=== PATIENT | male | born 1965 | race Caucasian/White ===

== ENCOUNTER 2018-01-28 05:27 | Inpatient (IN) | payer BC ==
[2018-01-24 10:32] LABS: ABSOLUTE NEUTROPHILS 5.2 thou/uL (1.4-8.2); BASOPHILS 0.5 % (0.0-2.0); EOSINOPHILS 1.7 % (0.0-3.0); HEMATOCRIT 42.9 % (42.0-52.0); LYMPHOCYTES 36.3 % (24.0-44.0); MCH 31.6 pg (26.0-34.0); MCHC 34.8 g/dL (28.0-37.0); MCV 90.6 fL (80.0-100.0); PLATELET COUNT 187 thou/uL (150-400); POLYS 54.5 % (36.0-66.0); RBC 4.74 mil/uL (4.50-6.00); RDW 13.3 % (10.5-14.5); WBC 9.5 thou/uL (4.0-11.0)
[2018-01-24 10:36] LABS: URINE BILIRUBIN NEGATIVE (Negative); URINE BLOOD NEGATIVE (Negative); URINE CLARITY CLEAR; URINE COLOR YELLOW; URINE GLUCOSE-RANDOM* 3+ (Negative); URINE KETONES NEGATIVE (Negative); URINE LEUKOCYTES-REFLEX NEGATIVE (Negative); URINE NITRITE-REFLEX NEGATIVE (Negative); URINE PROTEIN (DIPSTICK) NEGATIVE (Negative); URINE SPECIFIC GRAVITY 1.015 (1.005-1.035)
[2018-01-24 10:49] LABS: APTT 28.7 Seconds (24.5-32.8); PROTIME 10.6 Seconds (9.3-11.4)
[2018-01-24 10:50] LABS: ALBUMIN 3.5 g/dL (3.4-5.0); CALCIUM 9.3 mg/dL (8.5-10.1); CREATININE 0.9 mg/dL (0.7-1.3); POTASSIUM 4.5 mmol/L (3.5-5.1); TOTAL BILIRUBIN 0.3 mg/dL (<0.1-1.0); TOTAL PROTEIN 6.6 g/dL (6.4-8.2)
[2018-01-25 03:07] LABS: GLYCOHEMOGLOBIN (HGB A1C) 8.3 % (4.8-5.6)
[2018-01-28] VITALS (11 sets, daily range): BP systolic 89–141; BP diastolic 59–90
[~2018-01-28] VITALS: Ht 182.9 cm; Wt 111.8 kg
--- NOTE | ~2018-01-28 | EKG ---
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 : 1965 Requested By: Dede Anand Order Number: [id number] MD: Mik Narayanan Measurements Intervals [place] Rate: 78 P: 40 WI: 162 QRS: 16 QRSD: 96 T: 57 QT: 431 QTc: 491 Interpretive Statements Sinus rhythm Probable left atrial enlargement Low voltage, precordial leads RSR' in V1 or V2, probably normal variant Abnormal T, consider ischemia, anterior leads Minimal ST elevation, inferior leads No previous ECG available for comparison Electronically Signed On 01-29-2018 12:07:12 CDT by Mik Narayanan [email or web address] <ELECTRONICALLY SIGNED> By: Mik Narayanan MD 01/29/18 1207 1445 1445 Mik Narayanan MD /EPI
--- NOTE | ~2018-01-28 | EKG ---
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 : 1965 Requested By: Dede Anand Order Number: [id number] MD: Mik Narayanan Measurements Intervals [place] Rate: 101 P: 23 [place]: 151 QRS: -4 QRSD: 88 T: 74 QT: 299 QTc: 388 Interpretive Statements Sinus tachycardia Low voltage, precordial leads RSR' in V1 or V2, probably normal variant ST elevation suggests acute pericarditis No previous ECG available for comparison Electronically Signed On 01-29-2018 12:14:50 CDT by Mik Narayanan [email or web address] <ELECTRONICALLY SIGNED> By: Mik Narayanan MD 01/29/18 1214 0741 0741 Mik Narayanan MD /EPI
--- NOTE | ~2018-01-28 | HC ---
[facility] [place] [address] [place] [address] CONSULTATION Name: SEPIDEH PALACIOS Room #: 241-P ADM IN M.R.#: [id number] Admission: 01/28/18 Attend Phys: Ajit Schaeffer MD Discharge: Date of : 69 Report #: [id number] THIS REPORT FOR: //name// CC: Daniel Villarreal DATE OF SERVICE: 01/28/2018 HISTORY OF PRESENT ILLNESS: The patient is a 52-year-old white male who earlier today underwent coronary bypass surgery here at [facility]. The patient has long history of diabetes and tobacco abuse. He had no history of heart disease, but early in December began to have intermittent chest pain. One evening it lasted most of the night. The patient could not sleep because of the pain. He actually did not go to work today prior to admission. On the day of admission, he awakened with the pain in his chest, went into his jaw, became short of breath. He actually went to Dr. Haider's office that day. ECG showed evidence of acute anterior ST segment elevation myocardial infarction. Code STEMI was activated. The patient was taken to [place] by ambulance. On arrival, he continued to have the pain. I performed urgent cardiac catheterization from the right radial artery. Results showed the LAD was acutely occluded at the small first diagonal branch. I then performed reperfusion and placed a single bare metal stent. There was noted to be a long 70% stenosis at distal LAD. First diagonal branch had a 60-70% ostial stenosis, 90% mid stenosis. Circumflex had a 90% bifurcating lesion involving the second marginal branch. The right coronary had a proximal 90% stenosis. Ejection fraction was 40%. The patient's post IN course was uncomplicated as he had no further chest pain, arrhythmias or heart failure. He was started on Plavix. Because of his severe multivessel coronary artery disease and diabetes, I recommended that he be considered for coronary artery bypass surgery. The patient returned to see my nurse practitioner a week later. He is referred to Dr. Schaeffer. The patient remained stable and 1 month following his myocardial infarction, he was taken off Plavix. Five days later, he was electively admitted here to [facility] earlier today. He underwent 4-vessel bypass surgery. He had a MCKINNON graft to the LAD, a radial graft to the ramus and a vein graft to the right diagonal artery. I was asked to see him in the ICU following surgery. The patient at this time has been extubated and he feels soreness in his chest and short of breath. He denied any lightheadedness or nausea. PAST MEDICAL HISTORY: Otherwise significant for nasal septal surgery, tonsillectomy, diabetes. He has a history of depression, hyperlipidemia. PREVIOUS MEDICATIONS: Consist of insulin, losartan, atorvastatin, Xanax, testosterone injections, Amaryl, metformin. After his myocardial infarction and stenting a month ago, he was also placed on Plavix, metoprolol. [address] [address] CONSULTATION Name: SEPIDEH PALACIOS Room #: 241-P [facility] IN .#: [id number] Admission: 01/28/18 Attend Phys: Ajit Schaeffer MD Discharge: Date of : 69 Report #: [id number] ALLERGIES: He had no known drug allergies. FAMILY HISTORY: Heart disease runs in the family. SOCIAL HISTORY: He is . 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 He has not worked for the past month following his myocardial infarction, was smoking a pack of cigarettes a day, but quit after his heart attack. He has a history of excessive alcohol intake in the past. REVIEW OF SYSTEMS: No history of stroke, asthma, peptic ulcer disease, liver disease, kidney disease, cancer, chronic skin condition. PHYSICAL EXAMINATION: GENERAL: Revealed a large middle-aged male, lying in bed. He appears in mild discomfort following his surgery. VITAL SIGNS: His blood pressure is 100/60, pulse is 80. He is afebrile. HEENT: He was anicteric. Conjunctivae pink. Mucous members are moist. NECK: Veins difficult to assess due to obesity. CHEST: Clear to auscultation. CARDIOVASCULAR: Regular rate and rhythm. ABDOMEN: Obese, soft, nontender. EXTREMITIES: Had no pitting edema. Dorsalis pedis pulse could not be palpated. SKIN: Cool and dry. RADIOLOGICAL DATA: His ECG done earlier today does not appear to be in the chart. His workup, he had carotid Doppler study done that showed moderate bilateral stenosis. No high grade lesion. Echocardiogram showed an ejection fraction of 50%. LABORATORY WORK: His LDL was 130 at the time of his myocardial infarction. Workup today, he had a chest x-ray that showed cardiomegaly, mild vascular congestion. His lab work today, sodium 138, potassium 4.3, creatinine 0.8, glucose 141. Liver function studies were normal. White blood cell count 20.5, hemoglobin 12.8. IMPRESSION AND RECOMMENDATIONS: 1. Status post coronary bypass surgery. Because of recent myocardial infarction, I would recommend amiodarone for prophylaxis against atrial fibrillation. I would continue 81 mg of aspirin a day. Since he had recent myocardial infarction, I would resume Plavix. 2. Diabetes. The patient is on insulin. 3. Hyperlipidemia. The patient has been on a statin drug. 4. History of depression. 5. Tobacco abuse. [facility] [address] [place] [address] CONSULTATION Name: SEPIDEH PALACIOS Room #: 241-P [facility] IN .R.#: [id number] Admission: 01/28/18 Attend Phys: Ajit Schaeffer MD Discharge: Date of : 69 Report #: [id number] 6. History of alcohol abuse. 7. Hypertension. The patient is on an ARB and beta chinmay. <ELECTRONICALLY SIGNED> By: Leobardo Rios MD, FACC 01/29/18 1219 1841 2209 Leobardo Rios MD, FACC /nt
--- NOTE | ~2018-01-28 | O ---
[facility] [place] [address] [place] [address] OPERATIVE REPORT Name: SEPIDEH PALACIOS Karson Room #: 241-P ADM IN M.R.#: [id number] Admission: 01/28/18 Attend Phys: Ajit Schaeffer MD Discharge: Date of : 69 Report #: [id number] THIS REPORT FOR: //name// CC: Daniel Rios MD [facility] Ajit Schaeffer DATE OF SERVICE: 01/28/2018 PREOPERATIVE DIAGNOSES: 1. Coronary artery disease, acute myocardial infarction, ST elevation myocardial infarction, greater than 30 days prior. 2. Moderate cardiomyopathy, ejection fraction of 30-35%. FINAL DIAGNOSES: 1. Coronary artery disease, acute myocardial infarction, ST elevation myocardial infarction, greater than 30 days prior. 2. Moderate cardiomyopathy, ejection fraction of 30-35%. OPERATIVE PROCEDURE PERFORMED: 1. Coronary artery bypass grafting x 4 with left internal mammary artery to the LAD, radial artery Y graft to diagonal vessel, radial artery graft to ramus intermedius vessel, saphenous vein graft to right coronary artery. 2. Left radial artery harvest. SURGEON: Ajit Schaeffer MD ASSISTANTS: DEMARCUS Butler and DEMARCUS Castillo ANESTHESIA: General. OPERATIVE INDICATIONS: The patient is a 52-year-old male who has previously presented with an acute ST segment elevation MT at [facility] in [place]. At that time, the patient was found to have acute occlusion of the right coronary artery and this was reopened with PTCA. The patient has recovered from his acute MT, has been out now for greater than 30 days. His Plavix was stopped and he is admitted at this time and brought to the operating room for coronary bypass grafting. OPERATIVE SUMMARY: The patient was brought into the operating room, placed on the OR table in supine position. After anesthesia was induced via the general endotracheal route, monitoring lines have been positioned, the patient was prepped and draped in sterile fashion with chlorhexidine. I first harvested radial artery from the left forearm utilizing a Harmonic scalpel. Concomitantly, saphenous vein was harvested from the left lower extremity using endoscopic technique. I then performed a median sternotomy incision. Left [address] [address] OPERATIVE REPORT Name: SEPIDEH PALACIOS Room #: 241-P [facility] IN .R.#: [id number] Admission: 01/28/18 Attend Phys: Ajit Schaeffer MD Discharge: Date of : 69 Report #: [id number] internal mammary artery was harvested in standard fashion. Pericardium was opened. Pericardial well was created. The patient was systemically anticoagulated with heparin. Cannulae were then placed in ascending aorta and the right atrium. An antegrade cardioplegic cannula was positioned. Cardiopulmonary bypass was begun. We attempted placement of a retrograde cardioplegic cannula, but were unsuccessful. Then, under low flow conditions, the aortic crossclamp was placed. The heart was arrested with approximately 1200 mL cold antegrade cardioplegia. This was augmented with topical ice slush. Diastolic arrest was achieved and maintained throughout this operation with intermittent doses of cold antegrade cardioplegia as well as topical ice slush. We first opened up the ramus intermedius vessel. We looked over into the OM system and we found very small arteries present. Nothing that was readily graftable. We did find this ramus intermedius vessel. We opened it. It was good size vessel, 1.9 mm in size. Distal anastomosis was carried out in end-to-side fashion with 7-0 Prolene utilizing the ramus intermedius vessel, in a proximal fashion to ascending aorta with 6-0 Prolene. Next, we opened up the right coronary artery just prior to the bifurcation into the PDA and a large vessel at the site, close to 2.5 mm in size, a distal anastomosis was carried out in end-to-side fashion with 7-0 Prolene and then a proximal fashion to the ascending aorta with 6-0 Prolene after 4.8 punch aortotomy was created. Next, we took a small segment of radial artery and anastomosed it to the diagonal vessel. It was a small vessel, 1.5 mm in size. Anastomosis was carried out in end-to-side fashion with 7-0 Prolene. Next, we brought the internal mammary artery on the field with moderate size, but had good flow. The LAD was opened in its mid segment. It was a large vessel and anastomosis was carried out in end-to-side fashion with 7-0 Prolene. We then made an arteriotomy in the left internal mammary artery and then we made an anastomosis between the radial artery graft to the diagonal vessel that was anastomosed to the MCKINNON. This was done with 7-0 Prolene in an end-to-side fashion. Warm cardioplegia was then given antegrade and care was taken to deair the ascending aorta, the vein graft as well as the arterial graft. Under low flow conditions, aortic crossclamp was released to begin the period of reperfusion. The patient was rewarmed to 37 degree centigrade. Three successive doses of calcium, a single dose of magnesium were given over 3-5 minute intervals. Atrial and ventricular pacing wires were placed and after defibrillation, the patient returned to a sinus bradycardia and was later atrially paced at a rate of 80. After a suitable period of reperfusion, the lungs were reinflated. The patient was weaned from cardiopulmonary bypass on a low dose Dobutrex infusion. Protamine was given to reverse the heparin, decannulation was effected. Once satisfactory hemostasis was achieved, we placed two 32-Gambian chest tubes anterior mediastinal and 24 Emerson drain in left pleural space. They were all brought out through separate stab incisions. Sternum was closed with #7 wire. The fascia, subcutaneous and skin were closed in multiple layers with absorbable suture. The procedure was [facility] [address] [place] [address] OPERATIVE REPORT Name: SEPIDEH PALACIOS Room #: 241-P [facility] IN [facility]#: [id number] Admission: 01/28/18 Attend Phys: Ajit Schaeffer MD Discharge: Date of : 69 Report #: [id number] completed. The patient was taken to the ICU in stable condition. Cardiopulmonary bypass time is 140 minutes. Cross clamp time 130 minutes. By: 1422 1615 /nt
[~2018-01-28 05:27] MED LIST: AMARYL2 MG PO; AMARYL4 MG PO; AMITRIPTYLINE H10 M1 PO; ASPIR 8181 MG PO; COZAAR 25 MG TA25 M1 PO; GLUCOPHAGE1000 MG PO; HYDROCODON-ACE1 EAC7 PO; LIPITOR 20 MG T20 M1 PO; LIPITOR80 MG PO; LOPRESSOR50 PO; NEFAZODONE HCL150 MG PO; NITROGLYCERIN0.4 MG SUBLING; PLAVIX 75 MG TA75 M1 PO; TAMSULOSIN HCL0.4 MG PO; TOUJEO SOL300 UNIT/1 SUBQ; TUMS PO; XANAX1 MG PO; ZANTAC 150MG T150 MG PO; ZOFRAN ODT4 MG PO
[2018-01-28 12:37] LABS: MCH 31.1 pg (26.0-34.0); MCHC 33.9 g/dL (28.0-37.0); MCV 91.5 fL (80.0-100.0); RBC 3.1 mil/uL (4.50-6.00); RDW 13.3 % (10.5-14.5); WBC 18.4 thou/uL (4.0-11.0)
[2018-01-28 12:43] LABS: HEMATOCRIT 28.4 % (42.0-52.0); HEMOGLOBIN 9.6 gm/dL (14.0-18.0)
[2018-01-28 12:52] LABS: INR 1.3
[2018-01-28 12:54] LABS: APTT 23.4 Seconds (24.5-32.8); PROTIME 13.1 Seconds (9.3-11.4)
[2018-01-28 12:55] LABS: FIBRINOGEN 217.5 mg/dL (210-360)
[2018-01-28 13:11] LABS: POC BE 4 mmol/L (-2.0 to +3.0); POC CA IONIZED 4.5 mg/dL (4.5-5.3); POC GLUCOSE 161 mg/dL (70-99); POC HCO3 30.3 mmol/L (22.0-26.0); POC HEMOGLOBIN 10.9 g/dL (14.0-18.0); POC POTASSIUM 4.6 mmol/L (3.5-5.1); POC SODIUM 138 mmol/L (136-145); POC pCO2 62.5 mmHg (35.0-45.0); POC pH 7.294 (7.360-7.450)
[2018-01-28 13:11] LABS: POC BE 6 mmol/L (-2.0 to +3.0); POC CA IONIZED 4.7 mg/dL (4.5-5.3); POC GLUCOSE 218 mg/dL (70-99); POC HCO3 29.7 mmol/L (22.0-26.0); POC HEMOGLOBIN 12.6 g/dL (14.0-18.0); POC POTASSIUM 4.4 mmol/L (3.5-5.1); POC SODIUM 136 mmol/L (136-145); POC pCO2 41.1 mmHg (35.0-45.0); POC pH 7.466 (7.360-7.450)
[2018-01-28 13:11] LABS: POC BE 5 mmol/L (-2.0 to +3.0); POC CA IONIZED 4.4 mg/dL (4.5-5.3); POC GLUCOSE 158 mg/dL (70-99); POC HCO3 30.4 mmol/L (22.0-26.0); POC HEMOGLOBIN 10.5 g/dL (14.0-18.0); POC POTASSIUM 4.5 mmol/L (3.5-5.1); POC SODIUM 138 mmol/L (136-145); POC pCO2 51.9 mmHg (35.0-45.0); POC pH 7.375 (7.360-7.450)
[2018-01-28 13:11] LABS: POC BE 3 mmol/L (-2.0 to +3.0); POC CA IONIZED 4.9 mg/dL (4.5-5.3); POC GLUCOSE 174 mg/dL (70-99); POC HCO3 29.5 mmol/L (22.0-26.0); POC HEMOGLOBIN 12.2 g/dL (14.0-18.0); POC POTASSIUM 4.2 mmol/L (3.5-5.1); POC SODIUM 138 mmol/L (136-145); POC pCO2 57.4 mmHg (35.0-45.0); POC pH 7.319 (7.360-7.450)
[2018-01-28 13:12] LABS: POC BE 2 mmol/L (-2.0 to +3.0); POC CA IONIZED 7.6 mg/dL (4.5-5.3); POC GLUCOSE 138 mg/dL (70-99); POC HCO3 25.8 mmol/L (22.0-26.0); POC HEMOGLOBIN 8.8 g/dL (14.0-18.0); POC POTASSIUM 3.6 mmol/L (3.5-5.1); POC SODIUM 138 mmol/L (136-145); POC pCO2 37.2 mmHg (35.0-45.0); POC pH 7.449 (7.360-7.450)
[2018-01-28 13:12] LABS: POC BE 6 mmol/L (-2.0 to +3.0); POC CA IONIZED 4.2 mg/dL (4.5-5.3); POC GLUCOSE 145 mg/dL (70-99); POC HCO3 29.9 mmol/L (22.0-26.0); POC HEMOGLOBIN 9.2 g/dL (14.0-18.0); POC POTASSIUM 4.1 mmol/L (3.5-5.1); POC SODIUM 137 mmol/L (136-145); POC pCO2 44.7 mmHg (35.0-45.0); POC pH 7.433 (7.360-7.450)
[2018-01-28 13:12] LABS: POC BE 6 mmol/L (-2.0 to +3.0); POC CA IONIZED 4.2 mg/dL (4.5-5.3); POC GLUCOSE 139 mg/dL (70-99); POC HCO3 29.8 mmol/L (22.0-26.0); POC HEMOGLOBIN 9.2 g/dL (14.0-18.0); POC POTASSIUM 3.9 mmol/L (3.5-5.1); POC SODIUM 136 mmol/L (136-145); POC pCO2 44.1 mmHg (35.0-45.0); POC pH 7.437 (7.360-7.450)
[2018-01-28 13:12] LABS: POC BE 7 mmol/L (-2.0 to +3.0); POC CA IONIZED 4.1 mg/dL (4.5-5.3); POC GLUCOSE 147 mg/dL (70-99); POC HCO3 30.1 mmol/L (22.0-26.0); POC HEMOGLOBIN 9.5 g/dL (14.0-18.0); POC POTASSIUM 4.5 mmol/L (3.5-5.1); POC SODIUM 138 mmol/L (136-145); POC pCO2 40.1 mmHg (35.0-45.0); POC pH 7.484 (7.360-7.450)
[2018-01-28 13:12] LABS: POC BE 1 mmol/L (-2.0 to +3.0); POC CA IONIZED 6.2 mg/dL (4.5-5.3); POC GLUCOSE 123 mg/dL (70-99); POC HCO3 25.1 mmol/L (22.0-26.0); POC HEMOGLOBIN 10.5 g/dL (14.0-18.0); POC POTASSIUM 3.8 mmol/L (3.5-5.1); POC SODIUM 139 mmol/L (136-145); POC pCO2 35.3 mmHg (35.0-45.0)
[2018-01-28 13:58] LABS: HEMATOCRIT 37.4 % (42.0-52.0); HEMOGLOBIN 12.8 gm/dL (14.0-18.0); MCH 31.1 pg (26.0-34.0); MCHC 34.2 g/dL (28.0-37.0); MCV 90.8 fL (80.0-100.0); RBC 4.12 mil/uL (4.50-6.00); RDW 13.5 % (10.5-14.5); WBC 20.5 thou/uL (4.0-11.0)
[2018-01-28 14:09] LABS: CALCIUM 10.4 mg/dL (8.5-10.1); CREATININE 0.8 mg/dL (0.7-1.3); MAGNESIUM 2.5 mg/dL (1.8-2.4); POTASSIUM 4.4 mmol/L (3.5-5.1)
[2018-01-28 14:12] LABS: APTT 26.1 Seconds (24.5-32.8); INR 1.1; PROTIME 10.9 Seconds (9.3-11.4)
[2018-01-28 14:24] LABS: BE(vivo) -0.4 mmol/L (-2 to +3); HCO3 25.1 mmol/L (22.0-26.0); PCO2 44.4 mmHg (35.0-45.0); PO2 61.9 mmHg (80.0-100.0); pH 7.371 (7.360-7.450)
[2018-01-28 17:00] LABS: BE(vivo) -2.3 mmol/L (-2 to +3); HCO3 21.7 mmol/L (22.0-26.0); PCO2 35.1 mmHg (35.0-45.0); PO2 95.1 mmHg (80.0-100.0); sO2 97.4 % (92.0-98.0)
[2018-01-28 17:28] LABS: BE(vivo) -5.6 mmol/L (-2 to +3); HCO3 19.9 mmol/L (22.0-26.0); PCO2 39.1 mmHg (35.0-45.0); PO2 100.3 mmHg (80.0-100.0); pH 7.325 (7.360-7.450); sO2 97.2 % (92.0-98.0)
[2018-01-28 18:02] LABS: HCO3 22.5 mmol/L (22.0-26.0); PCO2 42.2 mmHg (35.0-45.0); PO2 80.6 mmHg (80.0-100.0); pH 7.345 (7.360-7.450); sO2 95.3 % (92.0-98.0)
[2018-01-28 21:21] LABS: HEMATOCRIT 34.2 % (42.0-52.0); HEMOGLOBIN 11.7 gm/dL (14.0-18.0)
[2018-01-29] VITALS (7 sets, daily range): BP systolic 94–139; BP diastolic 56–94
[2018-01-29 04:42] LABS: HEMATOCRIT 34.8 % (42.0-52.0); HEMOGLOBIN 11.9 gm/dL (14.0-18.0); MCH 31.3 pg (26.0-34.0); MCV 91.9 fL (80.0-100.0); RBC 3.79 mil/uL (4.50-6.00); RDW 14.1 % (10.5-14.5); WBC 19.3 thou/uL (4.0-11.0)
[2018-01-29 04:56] LABS: CALCIUM 9.5 mg/dL (8.5-10.1); CREATININE 1.4 mg/dL (0.7-1.3)
[2018-01-29 05:01] LABS: POTASSIUM 5.3 mmol/L (3.5-5.1)
[2018-01-29 05:02] LABS: BE(vivo) -3.3 mmol/L (-2 to +3); HCO3 23.1 mmol/L (22.0-26.0); PCO2 46.8 mmHg (35.0-45.0); PO2 145.5 mmHg (80.0-100.0); sO2 98.7 % (92.0-98.0)
[2018-01-29 05:03] LABS: pH 7.311 (7.360-7.450)
[2018-01-30 00:26] VITALS: BP 93/62
[2018-01-30 04:53] VITALS: BP 104/63
[2018-01-30 08:30] VITALS: BP 104/61
[2018-01-30 12:00] VITALS: BP 84/46
[2018-01-30 16:50] VITALS: BP 112/58
[2018-01-30 17:25] LABS: HEMATOCRIT 23.4 % (42.0-52.0); MCH 31.7 pg (26.0-34.0); MCHC 34.3 g/dL (28.0-37.0); MCV 92.4 fL (80.0-100.0); RBC 2.53 mil/uL (4.50-6.00); RDW 13.7 % (10.5-14.5); WBC 14.9 thou/uL (4.0-11.0)
[2018-01-30 17:31] LABS: CALCIUM 9.2 mg/dL (8.5-10.1); CREATININE 1.2 mg/dL (0.7-1.3); POTASSIUM 4.2 mmol/L (3.5-5.1)
[2018-01-30 19:50] VITALS: BP 106/54
[2018-01-31 05:07] VITALS: BP 122/63
[2018-01-31 07:57] VITALS: BP 113/63
[2018-01-31 11:27] VITALS: BP 102/53
[2018-01-31 17:24] VITALS: BP 109/64
[2018-01-31 19:37] VITALS: BP 107/52
[2018-02-01 04:19] VITALS: BP 109/74
[2018-02-01 05:09] LABS: ABSOLUTE NEUTROPHILS 5.9 thou/uL (1.4-8.2); BASOPHILS 0.2 % (0.0-2.0); HEMATOCRIT 23.8 % (42.0-52.0); HEMOGLOBIN 8.2 gm/dL (14.0-18.0); LYMPHOCYTES 21.7 % (24.0-44.0); MCH 32.1 pg (26.0-34.0); MCHC 34.6 g/dL (28.0-37.0); MCV 92.8 fL (80.0-100.0); MONOCYTES 9.3 % (1.0-8.0); PLATELET COUNT 192 thou/uL (150-400); POLYS 67.8 % (36.0-66.0); RBC 2.56 mil/uL (4.50-6.00); RDW 13.4 % (10.5-14.5); WBC 8.7 thou/uL (4.0-11.0)
[2018-02-01 05:32] LABS: CALCIUM 8.8 mg/dL (8.5-10.1); CREATININE 0.9 mg/dL (0.7-1.3); MAGNESIUM 1.9 mg/dL (1.8-2.4); POTASSIUM 3.4 mmol/L (3.5-5.1)
[2018-02-01 08:08] VITALS: BP 108/72
[2018-02-01 11:30] VITALS: BP 94/57
[2018-02-01 20:35] VITALS: BP 131/67
[2018-02-02 05:12] VITALS: BP 106/65
[2018-02-02 08:00] VITALS: BP 110/65
[2018-02-02] MEDS ORDERED: COZAAR 25 MG TA25 MG PO (09:16)
[2018-02-02] MEDS ORDERED: CLOPIDOGREL75 MG PO (09:16)
[2018-02-02] MEDS ORDERED: LOPRESSOR25 PO (09:16)
[2018-02-02] MEDS ORDERED: FLOMAX0.4 MG PO (09:16)
[2018-02-02] MEDS ORDERED: ASPIRIN EC325 M1 PO (09:19)
[2018-02-02] MEDS ORDERED: HYDROCODON-ACE1 EAC7 PO (09:21)
[2018-02-02 10:39] VITALS: BP 110/65
== END 2018-02-02 11:46 | disposition home health service (06) | DRG 236 ==
LOC: TBA 05:27 → PRE 05:38 → ICU 13:38 → 2N 01-29 19:04 → ENTRNSPT 02-02 11:31 → EDTRNSPTSTS 02-02 11:43 → 2N 02-02 11:46
PROVIDERS: Nurse Practitioner; Thoracic Surgery (Cardiothoracic Vascular Surgery)
PROC: 06BQ4ZZ Excision of Left Saphenous Vein, Percutaneous Endoscopic Approach (ICD-10-PCS; principal; 2018-01-28)
PROC: 03BC0ZZ Excision of Left Radial Artery, Open Approach (ICD-10-PCS; principal; 2018-01-28)
PROC: 02110AW Bypass Coronary Artery, Two Arteries from Aorta with Autologous Arterial Tissue, Open Approach (ICD-10-PCS; principal; 2018-01-28)
PROC: 5A1221Z Performance of Cardiac Output, Continuous (ICD-10-PCS; principal; 2018-01-28)
PROC: 02100Z9 Bypass Coronary Artery, One Artery from Left Internal Mammary, Open Approach (ICD-10-PCS; principal; 2018-01-28)
PROC: 021009W Bypass Coronary Artery, One Artery from Aorta with Autologous Venous Tissue, Open Approach (ICD-10-PCS; principal; 2018-01-28)
DX: I25.10 Atherosclerotic heart disease of native coronary artery without angina pectoris (principal); N17.9 Acute kidney failure, unspecified; D62 Acute posthemorrhagic anemia; E11.9 Type 2 diabetes mellitus without complications; F10.10 Alcohol abuse, uncomplicated; I10 Essential (primary) hypertension; E78.5 Hyperlipidemia, unspecified; G47.33 Obstructive sleep apnea (adult) (pediatric); F41.9 Anxiety disorder, unspecified; K21.9 Gastro-esophageal reflux disease without esophagitis; F32.9 Major depressive disorder, single episode, unspecified; I42.9 Cardiomyopathy, unspecified; F17.210 Nicotine dependence, cigarettes, uncomplicated; I25.2 Old myocardial infarction; E66.9 Obesity, unspecified; Z68.33 Body mass index [BMI] 33.0-33.9, adult; Z79.899 Other long term (current) drug therapy; Z82.49 Family history of ischemic heart disease and other diseases of the circulatory system
CPT/HCPCS: 10078; 10081; 47297; 50010; 50249; 50409; 50456; 50497; 50662; 50668; 51301; 52131; 52190; 52314; 53327; 53358; 54118; 56524; 56525; 56526; 56527; 56528; 56529; 56531; 56534; 56639; 57093; 64029; 65002; 65003; 65020; 65043; 83006

== ENCOUNTER → 2018-02-24 | Outpatient (CLI) | payer BC ==
[~2018-02-24] MED LIST changes: +ASPIRIN EC325 M1 PO; +CLOPIDOGREL75 MG PO; +COZAAR 25 MG TA25 MG PO; +FLOMAX0.4 MG PO; +LOPRESSOR25 PO
== END ==
LOC: RAD 02-21 06:46
DX: J98.11 Atelectasis (principal); Z95.1 Presence of aortocoronary bypass graft